=== PATIENT | female | born 1985 | race Hispanic/Latino ===

== ENCOUNTER 2020-12-13 16:50 | Observation (INO) | payer OTHER ==
[~2020-12-13] VITALS: Ht 160 cm; Wt 84.4 kg
[2020-12-13 16:52] VITALS: BP 127/76
[2020-12-13 17:34] LABS: ABG BASE EXCESS -3.1 mmol/L (-2.0-3.0); ABG HCO3 19.8 mmol/L (21.0-28.0); ABG OXYGEN SATURATION 96.4 % (95.0-99.0); ABG PCO2 30 mmHg (32-45)
[2020-12-13 17:43] LABS: BASOPHILS % (AUTO) 0.2 % (0.0-5.0); EOSINOPHILS % (AUTO) 0.2 % (0.0-8.0); HEMATOCRIT 34.5 % (36-48); MEAN CORPUSCULAR HGB CONC 35.4 g/dL (32.0-36.0); MEAN CORPUSCULAR VOLUME 93.2 fL (79-99); MONOCYTES % (AUTO) 5.3 % (3.0-13.0); NEUTROPHILS % (AUTO) 72.1 % (40.0-77.0); PLATELET COUNT (AUTO) 146 K/uL (130-400); WHITE BLOOD COUNT (AUTO) 4.7 K/uL (4.8-10.8)
[2020-12-13 17:58] LABS: CREATININE 0.6 mg/dL (0.5-1.5); POTASSIUM 3.8 mmol/L (3.5-5.1)
[2020-12-13 18:05] LABS: ALBUMIN 2.8 g/dL (3.5-5.0); BILIRUBIN,TOTAL 0.3 mg/dL (0.2-1.0); CRP QUANTITATIVE 63.9 mg/L (0.00-9.0); TOTAL PROTEIN, SERUM 6.6 g/dL (6.0-8.3)
[2020-12-13] MEDS ORDERED: IPRATROPIUM/ALBUTEROL SULFATE 3 ML SOLUTION IH ONE (18:30)
[2020-12-13 19:15] VITALS: BP 117/65
[2020-12-13] MEDS ORDERED: ALBUTEROL INHALER 90MCG/INH IH ONE (20:00)
[2020-12-13 20:20] VITALS: BP 105/61
[2020-12-13] MEDS ORDERED: BUDESONIDE 0.25 MG/2 ML INH IH ONE (21:00)
[2020-12-13] MEDS ORDERED: GUAIFENESIN-DM 200/20 MG 10 ML PO PRN (21:30)
[2020-12-13] MEDS ORDERED: LACTATED RINGERS 1000ML 1,000 ML IV SCH (21:30)
[2020-12-13] MEDS ORDERED: ACETAMINOPHEN 325 MG TAB PO PRN (21:30)
[2020-12-13] MEDS ORDERED: ONDANSETRON 4MG INJ IVP PRN (22:00)
[2020-12-13] MEDS ORDERED: CALCIUM CARB 500MG CHEW TAB PO PRN (22:00)
[2020-12-13 22:04] LABS: APPEARANCE,URINE Turbid (CLEAR); BILIRUBIN,URINE Small (NEGATIVE); COLOR,URINE Dark Yellow (YELLOW); GLUCOSE, URINE (UA) Negative (NEGATIVE); KETONES,URINE >=80 mg/dL (NEGATIVE); LEUKOCYTE ESTERASE ,URINE Moderate (NEGATIVE); NITRATE,URINE Negative (NEGATIVE); OCCULT BLOOD,URINE Negative (NEGATIVE); PROTEIN,URINE POS 1+ mg/dL (NEGATIVE)
[2020-12-13 22:09] LABS: BACTERIA,URINE Moderate /HPF (None Seen); MUCUS,URINE Moderate LPF (None Seen); SQUAMOUS EPITHELIAL CELL,UR Moderate /HPF (0-2)
[2020-12-13 22:30] VITALS: BP 99/63
[2020-12-13] MEDS ORDERED: ALBUTEROL INHALER 90MCG/INH IH PRN (22:30)
[2020-12-13] MEDS ORDERED: AZITHROMYCIN 500MG+NS 250ML 250 ML IV ONE (23:15)
[2020-12-13] MEDS: 0.9% NACL 250ML IVPB SCH (23:29)
[2020-12-13] MEDS: CEFTRIAXONE 1G VIAL IVP SCH (23:29)
[2020-12-13] MEDS: AZITHROMYCIN 500MG VIAL IVPB SCH (23:29)
[2020-12-14] VITALS (10 sets, daily range): BP systolic 88–109; BP diastolic 56–73
[2020-12-14 03:15] LABS: ABG BASE EXCESS -0.2 mmol/L (-2.0-3.0); ABG HCO3 22.2 mmol/L (21.0-28.0); ABG OXYGEN SATURATION 96.9 % (95.0-99.0); ABG PCO2 31 mmHg (32-45)
[2020-12-14] MEDS: GUAIFENESIN SUGAR-FREE 100 MG/5 ML UDCUP PO PRN ×3 (08:43→21:39)
[2020-12-14] MEDS: PRENATAL VITAMIN RX TABLET PO SCH (08:43)
[2020-12-14 09:05] LABS: CRP QUANTITATIVE 82.6 mg/L (0.00-9.0)
[2020-12-14] MEDS ORDERED: DEXAMETHASONE 4 MG TAB PO SCH (12:00)
[2020-12-14] MEDS: CEFTRIAXONE 1G VIAL IVP SCH (21:39)
[2020-12-14] MEDS: 0.9% NACL 250ML IVPB SCH (22:00)
[2020-12-14] MEDS: AZITHROMYCIN 500MG VIAL IVPB SCH (22:00)
[2020-12-14] MEDS ORDERED: AZITHROMYCIN 500MG+NS 250ML 250 ML IV ONE (23:31)
[2020-12-15 03:51] VITALS: BP 95/59
[2020-12-15 06:19] LABS: LYMPHOCYTES % (AUTO) 30.8 % (21.0-51.0); MEAN CORPUSCULAR HEMOGLOBIN 32.1 pg (27.0-33.0); MEAN CORPUSCULAR HGB CONC 34.5 g/dL (32.0-36.0); MONOCYTES % (AUTO) 7.3 % (3.0-13.0); NEUTROPHILS % (AUTO) 61.6 % (40.0-77.0); PLATELET COUNT (AUTO) 146 K/uL (130-400); RED BLOOD CELL COUNT(AUTO) 3.55 MIL/uL (4.00-5.50); RED CELL DISTRIBUTION WIDTH 13.1 % (11.0-15.5); WHITE BLOOD COUNT (AUTO) 3.9 K/uL (4.8-10.8)
[2020-12-15 06:35] LABS: ALBUMIN 2.4 g/dL (3.5-5.0); BILIRUBIN,TOTAL 0.3 mg/dL (0.2-1.0); CREATININE 0.6 mg/dL (0.5-1.5); CRP QUANTITATIVE 72.7 mg/L (0.00-9.0); POTASSIUM 4.4 mmol/L (3.5-5.1)
[2020-12-15 07:28] VITALS: BP 94/59
[2020-12-15] MEDS ORDERED: OMEP20CA12 PO (08:43)
[2020-12-15] MEDS ORDERED: FAMO20TA8 PO (08:43)
[2020-12-15] MEDS ORDERED: ASPI-1443 PO (08:43)
[2020-12-15] MEDS ORDERED: PROM12.513 PO (08:43)
[2020-12-15] MEDS: PRENATAL VITAMIN RX TABLET PO SCH (08:59)
[2020-12-15] MEDS ORDERED: ENOXAPARIN SODIUM 40 MG/0.4 ML SYRINGE SQ SCH (09:00)
[2020-12-15] MEDS: GUAIFENESIN SUGAR-FREE 100 MG/5 ML UDCUP PO PRN (09:01)
[2020-12-15] MEDS ORDERED: [UNRECOGNIZED DRUG - OTHER] PO (10:27)
[2020-12-15] MEDS ORDERED: AMOX-429 PO (10:27)
[2020-12-15] MEDS ORDERED: ALBUHFA IH (10:27)
[2020-12-15 11:29] VITALS: BP 99/62
== END 2020-12-15 13:00 | disposition home or self-care (01) ==
LOC: EDH 16:50 → EDHIP 16:51 → 2AH 12-14 08:23
PROVIDERS: ADMIT Internal Medicine; ATTEND Internal Medicine
DX: O98.512 Other viral diseases complicating pregnancy, second trimester (principal); U07.1 COVID-19; A41.89 Other specified sepsis; J12.82 Pneumonia due to coronavirus disease 2019; O99.512 Diseases of the respiratory system complicating pregnancy, second trimester; R06.02 Shortness of breath; R77.8 Other specified abnormalities of plasma proteins; O09.522 Supervision of elderly multigravida, second trimester; Z3A.17 17 weeks gestation of pregnancy; Z98.891 History of uterine scar from previous surgery; Z79.82 Long term (current) use of aspirin; Z79.899 Other long term (current) drug therapy
CPT/HCPCS: 36415 ×3; 36600 ×2; 71045; 76805; 80053 ×2; 81001; 82306; 82550; 82728; 82803 ×2; 83615; 84145; 84484; 85025 ×2; 85378 ×2; 86140 ×3; 87077; 87088; 87186; 87635; 93005; 93970; 96365; 96366 ×3; 96375; 96376; 99285; C9803; G0378 ×40; J0456 ×2; J0696 ×2; J7050; J8540

== ENCOUNTER 2020-12-18 08:28 | Inpatient (IN) | payer MEDICAID, OTHER ==
[~2020-12-18] VITALS: Ht 160 cm; Wt 85.3 kg
[~2020-12-18 08:28] MED LIST: ALBUHFA IH; AMOX-429 PO; ASPI-1443 PO; FAMO20TA8 PO; OMEP20CA12 PO; PROM12.513 PO; [UNRECOGNIZED DRUG - OTHER] PO
[2020-12-18 09:13] LABS: HEMATOCRIT 31.2 % (36-48); LYMPHOCYTES % (AUTO) 12.2 % (21.0-51.0); MEAN CORPUSCULAR HGB CONC 34.9 g/dL (32.0-36.0); MEAN CORPUSCULAR VOLUME 91.5 fL (79-99); MONOCYTES % (AUTO) 7.1 % (3.0-13.0); NEUTROPHILS % (AUTO) 80.2 % (40.0-77.0); PLATELET COUNT (AUTO) 272 K/uL (130-400); RED BLOOD CELL COUNT(AUTO) 3.41 MIL/uL (4.00-5.50); RED CELL DISTRIBUTION WIDTH 13.1 % (11.0-15.5); WHITE BLOOD COUNT (AUTO) 7.6 K/uL (4.8-10.8)
[2020-12-18 09:23] LABS: CREATININE 0.6 mg/dL (0.5-1.5); POTASSIUM 3.4 mmol/L (3.5-5.1)
[2020-12-18 09:27] LABS: ALBUMIN 2.4 g/dL (3.5-5.0); BILIRUBIN,TOTAL 1.5 mg/dL (0.2-1.0); CRP QUANTITATIVE 171.2 mg/L (0.00-9.0); TOTAL PROTEIN, SERUM 6.5 g/dL (6.0-8.3)
[2020-12-18 09:38] LABS: ABG HCO3 19.5 mmol/L (21.0-28.0); ABG OXYGEN SATURATION 95.7 % (95.0-99.0); ABG PCO2 29 mmHg (32-45)
[2020-12-18 10:18] LABS: ERYTHROCYTE SEDIMENTATION RATE 80 MM/HR (0-20)
[2020-12-18] MEDS ORDERED: CEFTRIAXONE 1G VIAL IVP ONE (11:00)
[2020-12-18] MEDS ORDERED: 0.9% NACL 250ML IVPB ONE (11:00)
[2020-12-18] MEDS ORDERED: SOLU-MEDROL 125MG VIAL IVP ONE (11:00)
[2020-12-18] MEDS ORDERED: ALBUTEROL INHALER 90MCG/INH IH PRN (11:00)
[2020-12-18] MEDS ORDERED: AZITHROMYCIN 500MG VIAL IVPB ONE (11:00)
[2020-12-18] MEDS ORDERED: SOLU-MEDROL 125MG VIAL ONE (12:31)
[2020-12-18] MEDS ORDERED: AZITHROMYCIN 500MG+NS 250ML 250 ML IV ONE (12:31)
[2020-12-18] MEDS ORDERED: CEFTRIAXONE 1G VIAL ONE (12:31)
[2020-12-18] MEDS ORDERED: ONDANSETRON 4MG INJ IVP PRN (17:00)
[2020-12-18] MEDS ORDERED: ACETAMINOPHEN 325 MG TAB PO PRN (17:00)
[2020-12-18] MEDS: GUAIFENESIN SUGAR-FREE 100 MG/5 ML UDCUP PO PRN (22:50)
[2020-12-18 22:57] LABS: APPEARANCE,URINE Clear (CLEAR); BILIRUBIN,URINE Small (NEGATIVE); COLOR,URINE Dark Yellow (YELLOW); GLUCOSE, URINE (UA) Negative (NEGATIVE); KETONES,URINE >=80 mg/dL (NEGATIVE); LEUKOCYTE ESTERASE ,URINE Small (NEGATIVE); NITRATE,URINE Negative (NEGATIVE); OCCULT BLOOD,URINE Negative (NEGATIVE); PH,URINE 6.5 (5.0-8.0); PROTEIN,URINE Negative (NEGATIVE)
[2020-12-18 23:06] LABS: RBC,URINE 0-1 /HPF (0-1)
[2020-12-18 23:07] LABS: BACTERIA,URINE Rare /HPF (None Seen)
[2020-12-19] MEDS: GUAIFENESIN SUGAR-FREE 100 MG/5 ML UDCUP PO PRN (05:42)
[2020-12-19 05:50] LABS: HEMATOCRIT 36.6 % (36-48); MEAN CORPUSCULAR HGB CONC 34.7 g/dL (32.0-36.0); MEAN CORPUSCULAR VOLUME 92.2 fL (79-99); RED BLOOD CELL COUNT(AUTO) 3.97 MIL/uL (4.00-5.50); RED CELL DISTRIBUTION WIDTH 13.1 % (11.0-15.5); WHITE BLOOD COUNT (AUTO) 4.8 K/uL (4.8-10.8)
[2020-12-19 06:13] LABS: ALBUMIN 2.6 g/dL (3.5-5.0); CREATININE 0.7 mg/dL (0.5-1.5); POTASSIUM 3.6 mmol/L (3.5-5.1); TOTAL PROTEIN, SERUM 7.3 g/dL (6.0-8.3)
[2020-12-19 08:42] LABS: HEMOGLOBIN A1C 5.5 % (4.0-6.0)
[2020-12-19] MEDS: DEXAMETHASONE SOD PHOSPHATE 4 MG/ML 1ML VIAL IVP SCH (09:25)
[2020-12-19] MEDS: PRENATAL VITAMIN RX TABLET PO SCH (09:25)
[2020-12-19] MEDS: FAMOTIDINE 20MG TAB PO SCH ×2 (09:25→20:37)
[2020-12-19] MEDS: CEFTRIAXONE 1G VIAL IVP SCH (09:25)
[2020-12-19] MEDS: ENOXAPARIN SODIUM 40 MG/0.4 ML SYRINGE SQ SCH (17:00)
[2020-12-19] MEDS ORDERED: [UNRECOGNIZED DRUG - REMARK] MISC SCH (17:30)
[2020-12-19] MEDS ORDERED: COMPOUND IV REFRIGERATED 1 EACH IVSOLN MISC PRN (21:00)
[2020-12-19] MEDS ORDERED: REMDESIVIR (EUA) 520 200 MG in 0.9% NACL 250ML 250 ML IV SCH (21:00)
[2020-12-19 21:15] VITALS: BP 108/73
[2020-12-19] MEDS: BUDESONIDE 0.25 MG/2 ML INH IH SCH ×2 (21:23→21:24)
[2020-12-19 21:30] VITALS: BP 104/53
[2020-12-19 23:00] VITALS: BP 92/58
[2020-12-20] VITALS (16 sets, daily range): BP systolic 73–112; BP diastolic 42–81
[2020-12-20 04:34] LABS: EOSINOPHILS % (AUTO) 0.2 % (0.0-8.0); HEMATOCRIT 30.9 % (36-48); LYMPHOCYTES % (AUTO) 22.1 % (21.0-51.0); MEAN CORPUSCULAR HEMOGLOBIN 31.7 pg (27.0-33.0); MEAN CORPUSCULAR HGB CONC 33.3 g/dL (32.0-36.0); MEAN CORPUSCULAR VOLUME 95.1 fL (79-99); MONOCYTES % (AUTO) 8.8 % (3.0-13.0); NEUTROPHILS % (AUTO) 68.1 % (40.0-77.0); PLATELET COUNT (AUTO) 312 K/uL (130-400); RED BLOOD CELL COUNT(AUTO) 3.25 MIL/uL (4.00-5.50); RED CELL DISTRIBUTION WIDTH 13.1 % (11.0-15.5); WHITE BLOOD COUNT (AUTO) 6.2 K/uL (4.8-10.8)
[2020-12-20 05:09] LABS: ALBUMIN 2.2 g/dL (3.5-5.0); BILIRUBIN,TOTAL 0.5 mg/dL (0.2-1.0); CREATININE 0.7 mg/dL (0.5-1.5); CRP QUANTITATIVE 47.9 mg/L (0.00-9.0); POTASSIUM 3.3 mmol/L (3.5-5.1); TOTAL PROTEIN, SERUM 5.9 g/dL (6.0-8.3)
[2020-12-20] MEDS: REMDESIVIR LABS MISC SCH (06:52)
[2020-12-20] MEDS ORDERED: POTASSIUM CHLORIDE 10% ELIXIR 20 MEQ/15 ML UDCUP PO PRN (09:00)
[2020-12-20] MEDS: BUDESONIDE 0.25 MG/2 ML INH IH SCH (09:00)
[2020-12-20] MEDS: FAMOTIDINE 20MG TAB PO SCH ×2 (09:19→20:58)
[2020-12-20] MEDS: GUAIFENESIN-DM 200/20 MG 10 ML PO PRN (09:19)
[2020-12-20] MEDS: DEXAMETHASONE SOD PHOSPHATE 4 MG/ML 1ML VIAL IVP SCH (09:19)
[2020-12-20] MEDS: PRENATAL VITAMIN RX TABLET PO SCH (09:19)
[2020-12-20] MEDS: CEFTRIAXONE 1G VIAL IVP SCH (09:20)
[2020-12-20] MEDS: ENOXAPARIN SODIUM 40 MG/0.4 ML SYRINGE SQ SCH (09:20)
[2020-12-20] MEDS ORDERED: KCL 20 MEQ ERTAB PO SCH (10:30)
[2020-12-20] MEDS: REMDESIVIR (EUA) 520 100 MG in 0.9% NACL 250ML 250 ML IV SCH (22:09)
[2020-12-21] VITALS (10 sets, daily range): BP systolic 79–130; BP diastolic 43–94
[2020-12-21 04:06] LABS: BASOPHILS % (AUTO) 0.2 % (0.0-5.0); EOSINOPHILS % (AUTO) 0.2 % (0.0-8.0); HEMATOCRIT 29.7 % (36-48); LYMPHOCYTES % (AUTO) 27.2 % (21.0-51.0); MEAN CORPUSCULAR HEMOGLOBIN 31.6 pg (27.0-33.0); MEAN CORPUSCULAR VOLUME 92.8 fL (79-99); MONOCYTES % (AUTO) 9.4 % (3.0-13.0); NEUTROPHILS % (AUTO) 62.1 % (40.0-77.0); PLATELET COUNT (AUTO) 332 K/uL (130-400); RED CELL DISTRIBUTION WIDTH 13.1 % (11.0-15.5); WHITE BLOOD COUNT (AUTO) 5.5 K/uL (4.8-10.8)
[2020-12-21 04:21] LABS: ALBUMIN 2.2 g/dL (3.5-5.0); BILIRUBIN,TOTAL 0.5 mg/dL (0.2-1.0); CREATININE 0.6 mg/dL (0.5-1.5); CRP QUANTITATIVE 33.9 mg/L (0.00-9.0); POTASSIUM 3.6 mmol/L (3.5-5.1); TOTAL PROTEIN, SERUM 5.8 g/dL (6.0-8.3)
[2020-12-21] MEDS: KCL 20 MEQ ERTAB PO PRN ×2 (05:52→09:33)
[2020-12-21] MEDS: REMDESIVIR LABS MISC SCH (06:00)
[2020-12-21] MEDS: BUDESONIDE 0.25 MG/2 ML INH IH SCH (06:00)
[2020-12-21] MEDS: DEXAMETHASONE SOD PHOSPHATE 4 MG/ML 1ML VIAL IVP SCH (09:31)
[2020-12-21] MEDS: FAMOTIDINE 20MG TAB PO SCH ×2 (09:32→21:23)
[2020-12-21] MEDS: ENOXAPARIN SODIUM 40 MG/0.4 ML SYRINGE SQ SCH (09:32)
[2020-12-21] MEDS: CEFTRIAXONE 1G VIAL IVP SCH (09:32)
[2020-12-21] MEDS: PRENATAL VITAMIN RX TABLET PO SCH (09:49)
[2020-12-21] MEDS ORDERED: 0.9%NACL 1000ML 500 ML IV ONE (12:00)
[2020-12-21] MEDS: REMDESIVIR (EUA) 520 100 MG in 0.9% NACL 250ML 250 ML IV SCH (21:24)
[2020-12-22] VITALS (7 sets, daily range): BP systolic 95–121; BP diastolic 55–72
[2020-12-22 05:00] LABS: BASOPHILS % (AUTO) 0.2 % (0.0-5.0); EOSINOPHILS % (AUTO) 0.3 % (0.0-8.0); HEMATOCRIT 31.6 % (36-48); LYMPHOCYTES % (AUTO) 29.4 % (21.0-51.0); MEAN CORPUSCULAR HEMOGLOBIN 31.5 pg (27.0-33.0); MEAN CORPUSCULAR HGB CONC 33.2 g/dL (32.0-36.0); MEAN CORPUSCULAR VOLUME 94.9 fL (79-99); MONOCYTES % (AUTO) 8.3 % (3.0-13.0); NEUTROPHILS % (AUTO) 60.1 % (40.0-77.0); PLATELET COUNT (AUTO) 331 K/uL (130-400); RED BLOOD CELL COUNT(AUTO) 3.33 MIL/uL (4.00-5.50); RED CELL DISTRIBUTION WIDTH 12.9 % (11.0-15.5); WHITE BLOOD COUNT (AUTO) 5.9 K/uL (4.8-10.8)
[2020-12-22 05:16] LABS: ALBUMIN 2.3 g/dL (3.5-5.0); BILIRUBIN,TOTAL 0.4 mg/dL (0.2-1.0); CREATININE 0.6 mg/dL (0.5-1.5); CRP QUANTITATIVE 24.1 mg/L (0.00-9.0); POTASSIUM 3.4 mmol/L (3.5-5.1); TOTAL PROTEIN, SERUM 5.8 g/dL (6.0-8.3)
[2020-12-22] MEDS: REMDESIVIR LABS MISC SCH (05:28)
[2020-12-22] MEDS: BUDESONIDE 0.25 MG/2 ML INH IH SCH ×2 (06:00→19:00)
[2020-12-22] MEDS: ENOXAPARIN SODIUM 40 MG/0.4 ML SYRINGE SQ SCH (09:07)
[2020-12-22] MEDS: FAMOTIDINE 20MG TAB PO SCH ×2 (09:07→20:30)
[2020-12-22] MEDS: PRENATAL VITAMIN RX TABLET PO SCH (09:07)
[2020-12-22] MEDS: CEFTRIAXONE 1G VIAL IVP SCH (09:07)
[2020-12-22] MEDS: DEXAMETHASONE SOD PHOSPHATE 4 MG/ML 1ML VIAL IVP SCH (09:07)
[2020-12-22] MEDS: REMDESIVIR (EUA) 520 100 MG in 0.9% NACL 250ML 250 ML IV SCH (20:30)
[2020-12-23 03:43] VITALS: BP 93/68
[2020-12-23 04:05] LABS: BASOPHILS % (AUTO) 0.3 % (0.0-5.0); EOSINOPHILS % (AUTO) 2.3 % (0.0-8.0); HEMATOCRIT 29.2 % (36-48); LYMPHOCYTES % (AUTO) 36.1 % (21.0-51.0); MEAN CORPUSCULAR HEMOGLOBIN 32.2 pg (27.0-33.0); MEAN CORPUSCULAR HGB CONC 34.2 g/dL (32.0-36.0); MEAN CORPUSCULAR VOLUME 93.9 fL (79-99); MONOCYTES % (AUTO) 7.7 % (3.0-13.0); NEUTROPHILS % (AUTO) 51.5 % (40.0-77.0); PLATELET COUNT (AUTO) 338 K/uL (130-400); RED BLOOD CELL COUNT(AUTO) 3.11 MIL/uL (4.00-5.50); RED CELL DISTRIBUTION WIDTH 12.9 % (11.0-15.5); WHITE BLOOD COUNT (AUTO) 5.7 K/uL (4.8-10.8)
[2020-12-23 04:22] LABS: ALBUMIN 2.2 g/dL (3.5-5.0); BILIRUBIN,TOTAL 0.5 mg/dL (0.2-1.0); CREATININE 0.5 mg/dL (0.5-1.5); CRP QUANTITATIVE 15.2 mg/L (0.00-9.0); POTASSIUM 3.3 mmol/L (3.5-5.1); TOTAL PROTEIN, SERUM 5.5 g/dL (6.0-8.3)
[2020-12-23] MEDS: REMDESIVIR LABS MISC SCH (05:21)
[2020-12-23] MEDS: BUDESONIDE 0.25 MG/2 ML INH IH SCH (06:17)
[2020-12-23] MEDS: KCL 20 MEQ ERTAB PO PRN ×3 (06:17→13:00)
[2020-12-23 08:00] VITALS: BP 96/59
[2020-12-23] MEDS: FAMOTIDINE 20MG TAB PO SCH (09:46)
[2020-12-23] MEDS: PRENATAL VITAMIN RX TABLET PO SCH (09:46)
[2020-12-23] MEDS: CEFTRIAXONE 1G VIAL IVP SCH (09:47)
[2020-12-23] MEDS: ENOXAPARIN SODIUM 40 MG/0.4 ML SYRINGE SQ SCH (09:48)
[2020-12-23] MEDS: DEXAMETHASONE SOD PHOSPHATE 4 MG/ML 1ML VIAL IVP SCH (09:51)
[2020-12-23] MEDS: GUAIFENESIN-DM 200/20 MG 10 ML PO PRN (10:08)
[2020-12-23 12:00] VITALS: BP 90/50
[2020-12-23] MEDS ORDERED: DEXA6TAB PO (14:48)
[2020-12-23 16:00] VITALS: BP 108/69
== END 2020-12-23 18:40 | disposition home or self-care (01) | DRG 831 ==
LOC: EDH 08:28 → EDHIP 08:29 → 2AH 12-19 21:28
PROVIDERS: ADMIT Internal Medicine; ATTEND Internal Medicine
PROC: XW033E5 Introduction of Remdesivir Anti-infective into Peripheral Vein, Percutaneous Approach, New Technology Group 5 (ICD-10-PCS; principal; 2020-12-19)
PROC: 5A0935A Assistance with Respiratory Ventilation, Less than 24 Consecutive Hours, High Flow/Velocity Cannula (ICD-10-PCS; 2020-12-19)
DX: O98.512 Other viral diseases complicating pregnancy, second trimester (principal); U07.1 COVID-19; J12.82 Pneumonia due to coronavirus disease 2019; J80 Acute respiratory distress syndrome; O99.512 Diseases of the respiratory system complicating pregnancy, second trimester; O99.212 Obesity complicating pregnancy, second trimester; E66.9 Obesity, unspecified; Z3A.18 18 weeks gestation of pregnancy; Z82.49 Family history of ischemic heart disease and other diseases of the circulatory system
CPT/HCPCS: 36415; 36600; 71045; 76705; 80053; 80076; 81001; 82550; 82728; 82803; 82948; 83036; 83605; 83615; 83735; 84145; 84484; 85025; 85027; 85378; 85651; 86140; 87040; 87088; 87635; 93005; 94760; C9803; G0378; J0456; J0696; J1100; J1650; J2405; J2930; J7050

== ENCOUNTER 2020-12-29 11:23 | Emergency (ER) | payer MEDICAID, OTHER ==
[~2020-12-29] VITALS: Ht 160 cm; Wt 83.5 kg
[~2020-12-29 11:23] MED LIST changes: -ALBUHFA IH; -AMOX-429 PO; -ASPI-1443 PO; +DEXA6TAB PO; -OMEP20CA12 PO
[2020-12-29 12:15] LABS: BASOPHILS % (AUTO) 0.2 % (0.0-5.0); HEMATOCRIT 31.9 % (36-48); LYMPHOCYTES % (AUTO) 21.1 % (21.0-51.0); MEAN CORPUSCULAR HEMOGLOBIN 32.6 pg (27.0-33.0); MEAN CORPUSCULAR HGB CONC 34.5 g/dL (32.0-36.0); MEAN CORPUSCULAR VOLUME 94.7 fL (79-99); MONOCYTES % (AUTO) 7.3 % (3.0-13.0); NEUTROPHILS % (AUTO) 70.8 % (40.0-77.0); PLATELET COUNT (AUTO) 272 K/uL (130-400); RED BLOOD CELL COUNT(AUTO) 3.37 MIL/uL (4.00-5.50); RED CELL DISTRIBUTION WIDTH 13.4 % (11.0-15.5)
[2020-12-29 12:27] LABS: CREATININE 0.6 mg/dL (0.5-1.5); POTASSIUM 3.5 mmol/L (3.5-5.1)
[2020-12-29 12:32] LABS: ALBUMIN 3.1 g/dL (3.5-5.0); BILIRUBIN,TOTAL 0.5 mg/dL (0.2-1.0); TOTAL PROTEIN, SERUM 6.4 g/dL (6.0-8.3)
[2020-12-29 13:02] LABS: B-TYPE NATRIURETIC PEPTIDE 20 pg/mL (0-100)
[2020-12-29 15:15] LABS: ABG BASE EXCESS -1.2 mmol/L (-2.0-3.0); ABG HCO3 21.5 mmol/L (21.0-28.0); ABG OXYGEN SATURATION 97.9 % (95.0-99.0); ABG PCO2 31 mmHg (32-45)
[2020-12-29 17:26] VITALS: BP 116/78
== END 2020-12-29 17:44 | disposition home or self-care (01) ==
LOC: EDH 11:23
DX: O98.512 Other viral diseases complicating pregnancy, second trimester (principal); U07.1 COVID-19; Z79.52 Long term (current) use of systemic steroids; Z79.82 Long term (current) use of aspirin; Z79.899 Other long term (current) drug therapy; Z3A.20 20 weeks gestation of pregnancy
CPT/HCPCS: 36415; 36600; 71045; 80053; 82550; 82803; 83880; 84484; 85025; 87635; 93005; 99285; C9803

== ENCOUNTER 2023-01-20 13:45 | Emergency (ER) | payer BC, MEDICAID ==
[~2023-01-20] VITALS: Ht 157.5 cm; Wt 88.5 kg
[2023-01-20 13:55] VITALS: BP 114/83; PULSE 95; RESP 16; O2SAT 100
[2023-01-20 14:38] LABS: BASOPHILS # (AUTO) 0.03 K/uL (0.00-0.20); BASOPHILS % (AUTO) 0.3 % (0.0-5.0); EOSINOPHILS # (AUTO) 0.06 K/uL (0.00-0.70); EOSINOPHILS % (AUTO) 0.6 % (0.0-8.0); HEMATOCRIT 40.7 % (36-48); IMMATURE GRANULOCYTE ABSOLUTE 0.02 K/uL (0-1); LYMPHOCYTES # (AUTO) 2.9 K/uL (1.0-4.8); LYMPHOCYTES % (AUTO) 31.3 % (21.0-51.0); MEAN CORPUSCULAR HGB CONC 34.4 g/dL (32.0-36.0); MEAN CORPUSCULAR VOLUME 92.9 fL (79-99); MONOCYTES # (AUTO) 0.5 K/uL (0.1-1.0); MONOCYTES % (AUTO) 5.5 % (3.0-13.0); NEUTROPHILS # (AUTO) 5.8 K/uL (1.8-7.7); NEUTROPHILS % (AUTO) 62.1 % (40.0-77.0); PLATELET COUNT (AUTO) 248 K/uL (130-400); RED BLOOD CELL COUNT(AUTO) 4.38 MIL/uL (4.00-5.50); WHITE BLOOD COUNT (AUTO) 9.3 K/uL (4.8-10.8)
[2023-01-20 14:50] LABS: CREATININE 0.9 mg/dL (0.5-1.5)
[2023-01-20 14:54] LABS: ALBUMIN 3.9 g/dL (3.5-5.0); BILIRUBIN,TOTAL 0.3 mg/dL (0.2-1.0); TOTAL PROTEIN, SERUM 7.8 g/dL (6.0-8.3)
[2023-01-20] MEDS ORDERED: KETOROLAC 30MG VIAL (30MG/ML) IVP ONE (15:00)
[2023-01-20] MEDS ORDERED: ACETAMINOPHEN 325 MG TAB PO ONE (15:00)
[2023-01-20] MEDS ORDERED: ONDANSETRON 4MG INJ IVP ONE (15:00)
[2023-01-20] MEDS ORDERED: DICYCLOMINE 20MG (10MG/ML) AMP IM ONE (15:00)
[2023-01-20] MEDS ORDERED: PANTOPRAZOLE 40 MG/VIAL IVP ONE (15:00)
[2023-01-20] MEDS ORDERED: MORPHINE 2 MG SYG IVP ONE (15:00)
[2023-01-20] MEDS ORDERED: 0.9%NACL 1000ML 1,000 ML IV ONE (15:00)
[2023-01-20 15:05] LABS: APPEARANCE,URINE CLOUDY (CLEAR); BILIRUBIN,URINE NEGATIVE (NEGATIVE); COLOR,URINE LIGHT-YELLOW (YELLOW); GLUCOSE, URINE (UA) NEGATIVE (NEGATIVE); KETONES,URINE NEGATIVE (NEGATIVE); LEUKOCYTE ESTERASE ,URINE 500 Leu/uL (NEGATIVE); NITRATE,URINE NEGATIVE (NEGATIVE); OCCULT BLOOD,URINE MODERATE (NEGATIVE); PH,URINE 5.5 (5.0-8.0); PROTEIN,URINE NEGATIVE (NEGATIVE); UROBILINOGEN,URINE 0.2 mg/dL (0.2-1.0)
[2023-01-20 15:07] LABS: ADD UA MICROSCOPIC YES
[2023-01-20 15:08] LABS: HCG,QUALITATIVE URINE NEGATIVE (NEGATIVE)
[2023-01-20 15:09] LABS: BACTERIA,URINE RARE /HPF (None Seen); MUCUS,URINE RARE LPF (None Seen); SQUAMOUS EPITHELIAL CELL,UR MOD /HPF (0-2); WBC,URINE 26-50 /HPF (0-1)
[2023-01-20] MEDS ORDERED: ACET-66 PO (16:42)
[2023-01-20] MEDS ORDERED: PANT40TA54 PO (16:42)
[2023-01-20] MEDS ORDERED: DICY20TA2 PO (16:42)
[2023-01-20] MEDS ORDERED: ONDA-104 PO (16:42)
== END 2023-01-20 16:56 | disposition home or self-care (01) ==
LOC: EDH 13:45
DX: K80.70 Calculus of gallbladder and bile duct without cholecystitis without obstruction (principal); K29.00 Acute gastritis without bleeding; Z79.52 Long term (current) use of systemic steroids
CPT/HCPCS: 99284; 96374; 96375; 76705; 96361; 80053; 83690; 85025; 87088; 81001; 81025; 36415; 96372; J2270; J7030; J2405; J1885; C9113; J0500